=== PATIENT | male | born 1965 ===

== ENCOUNTER 2023-01-23 07:08 | Day surgery (SDC) | payer OTHER ==
[~2023-01-23] VITALS: Ht 180.3 cm; Wt 93.9 kg
[2023-01-23] MEDS ORDERED: fentaNYL citrate 0.05 MG/ML VIAL ONE (08:09)
[2023-01-23] MEDS ORDERED: LIDOCAINE 2% 100 MG/5 ML UJET TP ONE (08:09)
[2023-01-23] MEDS ORDERED: MIDAZOLAM 5 MG/5 ML VIAL ONE (08:09)
[2023-01-23] MEDS ORDERED: diphenhydrAMINE 50 MG/ML VIAL ONE (08:09)
[2023-01-23] MEDS ORDERED: fentaNYL citrate 0.05 MG/ML VIAL IVP ONE (10:00)
[2023-01-23] MEDS ORDERED: diphenhydrAMINE 50 MG/ML VIAL IVP PRN (10:00)
[2023-01-23] MEDS ORDERED: MIDAZOLAM 2 MG/2 ML VIAL IV ONE (10:00)
== END 2023-01-23 11:25 | disposition home or self-care (01) ==
LOC: MDS 07:08 → MMU 07:11 → MDS 11:25
PROVIDERS: ATTEND Internal Medicine Gastroenterology
DX: R13.19 Other dysphagia (principal); K22.2 Esophageal obstruction; K44.9 Diaphragmatic hernia without obstruction or gangrene; I10 Essential (primary) hypertension; F41.9 Anxiety disorder, unspecified; Z80.3 Family history of malignant neoplasm of breast; Z87.891 Personal history of nicotine dependence; Z79.899 Other long term (current) drug therapy
CPT/HCPCS: 43239; 43248; 88305; J1200; J2250; J3010; J7030